=== PATIENT | female | born 1985 | race Hispanic/Latino ===

== ENCOUNTER 2024-06-16 08:21 | Outpatient (CLI) | payer BC | END 2024-06-16 08:22 | disposition home or self-care (01) | LOC: BICMAMMO 08:21 | PROVIDERS: ATTEND Family Medicine | DX: R92.1 Mammographic calcification found on diagnostic imaging of breast (principal) | CPT/HCPCS: G0279 ==

== ENCOUNTER 2025-06-23 08:00 | Outpatient (CLI) | payer BC | END 2025-06-23 08:01 | disposition home or self-care (01) | LOC: ULT 08:00 | PROVIDERS: ATTEND Family Medicine | DX: R10.13 Epigastric pain (principal); R10.11 Right upper quadrant pain; R10.20 Pelvic and perineal pain unspecified side; K82.8 Other specified diseases of gallbladder; K83.8 Other specified diseases of biliary tract | CPT/HCPCS: 76700; 76856 ==

== ENCOUNTER 2025-09-07 08:21 | Outpatient (CLI) | payer BC | END 2025-09-07 08:22 | disposition home or self-care (01) | LOC: MRI 08:21 | PROVIDERS: ATTEND Internal Medicine | DX: K21.9 Gastro-esophageal reflux disease without esophagitis (principal); R10.13 Epigastric pain; K59.09 Other constipation; K83.8 Other specified diseases of biliary tract; Z87.11 Personal history of peptic ulcer disease | CPT/HCPCS: 74183; 76376 ==